=== PATIENT | female | born 2000 | race Caucasian/White ===

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

== ENCOUNTER 2022-02-28 11:45 | Emergency (ER) | payer OTHER, SELFPAY ==
--- NOTE | ~2022-02-28 | US_ITS ---
EXAMINATION: US OB limited DATE: 02/28/2022 15:00 INDICATION: Abdominal cramping during second trimester TECHNIQUE: Real-time ultrasound of the pelvis was performed. The interpreting radiologist was not pre sent for the study. COMPARISON: None. FINDINGS: There is a single living fetus in vertex presentation. The placenta is anterior. card iac activity and movement are noted. heart rate is 158 beats per minute (bpm). The amniot ic fluid index is 10.9 cm which is normal (normal range: 8.7 cm to 20 cm). The following biometric data were obtained: Biparietal diameter (BPD): 4.1 cm; head circumference (HC): 14.3 cm; abdominal circumference (AC): 11 .5 cm; femur length (FL): 2.7 cm. These measurements are concordant. Estimated weight is 206 g +/- 31 g, which correlates with the 6th percentile when 07/27/2022 is used as estimated date of delivery. As single measurements, these parameters are each equal to the following estimated gestational ages w ith ranges of +/- 2 standard deviations: BPD: 18 weeks 3 days +/- 1 weeks 5 days. HC: 17 weeks 4 days +/- 1 weeks 1 days. AC: 17 weeks 2 days +/- 1 weeks 5 days. FL: 18 weeks 1 days +/- 1 weeks 3 days. estimated gestational age based solely on measurements from this exam is 17 weeks 6 days +/- 1 weeks 2 days. IMPRESSION: 1. Single living fetus in vertex presentation. 2. Normal amniotic fluid index. 3. Estimated weight is 206 g +/- 31 g, which correlates with the 6th percentile when 07/27/2022 is used as estimated date of delivery. Reviewed, dictated and finalized at location F. IMPRESSION: 1. Single living fetus in vertex presentation. 2. Normal amniotic fluid index. 3. Estimated weight is 206 g +/- 31 g, which correlates with the 6th perc entile when 07/27/2022 is used as estimated date of delivery.
[2022-02-28 11:48] VITALS: BP 126/63; PULSE 79; RESP 16; TEMP 36.5; O2SAT 100
[2022-02-28 12:04] LABS: Basophils Percent Auto 0.2 % (0.2-1.2); Eosinophils Percent Auto 0.1 % (0-4.4); Hematocrit 38.6 % (37.0-47.0); Hemoglobin 12.9 g/dL (12.0-15.0); Immature Granulocyte Absolute 0.04 K/mm3 (0.00-0.031); Immature Granulocyte Percent A 0.4 % (0-0.5); Lymphocytes Absolute Auto 0.98 K/mm3 (0.9-3.2); Lymphocytes Percent Auto 10.8 % (18.3-44.2); Mean Corpuscular HGB Conc 33.4 g/dl (32-36); Mean Corpuscular Hemoglobin 28.7 pg (26-34); Mean Platelet Volume 11.3 fl (7.4-10.4); Monocytes Absolute Auto 0.4 K/mm3 (0.1-0.6); Monocytes Percent Auto 4.4 % (2.6-8.5); Neutrophils Absolute Auto 7.7 K/mm3 (1.3-6.7); Neutrophils Percent Auto 84.1 % (45.5-73.1); Platelet Count Result 199 k/mm3 (150-375); Red Blood Count 4.49 M/mm3 (4.2-5.4); Red Cell Distribution Width 14.3 % (11.5-14.5); White Blood Count 9.1 K/mm3 (4.5-10.0)
[2022-02-28 13:29] LABS: Add Urine Microscopic? YES; Amorphous Sediment Urine Few; Appearance Urine Cloudy (Clear); Bilirubin Urine Negative (Negative); Blood Urine Negative (Negative); Color Urine Yellow (Yellow); Glucose Urine UA Negative (Negative); Ketones Urine Negative (Negative); Leukocyte Esterase Ur Negative LEU/UL (Negative); Mucus Urine Rare /lpf; Nitrate Urine Negative (Negative); Protein Urine Negative (Negative); Specific Grav Ur 1.012 (1.001-1.035); Squamous Epithelial Cell Urine Moderate /hpf (Few); Urobilinogen Urine Negative mg/dL (<2.0); WBC Urine 0-3 /hpf
--- NOTE | 2022-02-28 14:27 | ED.GENADULT ---
HPI - General Adult General Chief complaint: Unspecified Stated complaint: 18 weeks , abd pain Time Seen by Provider: 02/28/22 14:18 History of Present Illness HPI narrative: Patient is a 21-year-old A1 female who is currently about 18 weeks here for evaluation of lower abdominal pain. Patient states the pain began 2 days ago, is crampy in nature and is intermittent. Unrelieved by Tylenol. Patient was seen at [place] [facility] last evening, was told she had UTI and placed on antibiotics but did not have an ultrasound. States the pain has been relatively constant and has been worsening. Denies vaginal bleeding, fevers, chills, diarrhea, constipation. No sudden gush of fluids or urge to push. Related Data Home Medications Medication Instructions Recorded Confirmed ondansetron HCl 4 mg tablet mg 02/28/22 Allergies Allergy/AdvReac Type Severity Reaction Status Date / Time Penicillins Allergy Anaphylactic Verified 02/28/22 14:18 Shock Review of Systems Review of Systems: Gen.: Denies fevers or chills Eyes: Denies eye pain or visual change ENT: Denies congestion Respiratory: Denies shortness of breath or cough CV: Denies chest pain or palpitations GI: Reports lower abdominal pain. Denies nausea, emesis or diarrhea denies burning, urgency, frequency or hematuria Musculoskeletal: Denies back pain or muscle pain Neuro: Denies numbness, tingling, weakness or focal weakness Skin: Denies rash Except as documented, all other systems reviewed and negative PMFSH Past Medical History Medical History No active medical problems Exam Narrative: APPEARANCE: Well appearing, no pain in distress, well-nourished. Head: Normocephalic and atraumatic. EYES: PERRLA/EOMI, conjunctivae clear NOSE: No nasal drainage EARS: External ear normal in appearance THROAT: Oropharynx is clear. Mucous membranes are moist. NECK: Supple. No adenopathy, no masses. RESPIRATORY: Airway patent, respirations nonlabored. Clear to auscultation bilaterally, no rales, rhonchi, wheezing. CARDIOVASCULAR: Regular rate and rhythm without murmurs, rubs, or gallops. : Small amount of white vaginal discharge noted in vaginal vault. Cervical os is closed. No cervical motion tenderness. ABDOMINAL: Normoactive bowel sounds. Soft, nontender, nondistended. No rebound tenderness or guarding. MUSCULOSKELETAL: Extremities are warm and well-perfused. Moves all extremities well. No edema. NEURO: Normal speech. No focal neurologic deficits. SKIN: Skin is warm and dry. No rashes. PSYCHIATRIC: Normal affect/mood. Course Vital Signs Vital signs: Vital Signs Temperature 97.7 F 02/28/22 11:48 Pulse Rate 79 02/28/22 11:48 Respiratory Rate 16 02/28/22 11:48 Blood Pressure 126/63 02/28/22 11:48 Pulse Oximetry 100 02/28/22 11:48 Temperature 97.7 F 02/28/22 11:48 Pulse Rate 80 02/28/22 15:56 Respiratory Rate 16 02/28/22 15:56 Blood Pressure 122/74 02/28/22 15:56 Pulse Oximetry 98 02/28/22 15:56 Medical Decision Making MDM Narrative Medical decision making narrative: 21-year-old female who is currently about 18 weeks here for evaluation of lower abdominal cramping. She is nontoxic-appearing, heart tones detected at bedside, ultrasound reveals live IUP. Patient is O+ no need for RhoGAM. Beta hCG quant is over 27,000 which is appropriate with her gestational age. She is currently being treated for UTI with Macrobid, UA here shows moderate squamous epithelial cells but no overt infection. She has no CVA tenderness to suggest Pyelo. Her cervical os is closed. Unclear etiology for abdominal pain but patient's normal ultrasound is certainly reassuring. Attempted to contact patient's VENEER GLUE SPREADER but there was no answer x2?no ability to leave message. Patient will contact her VENE[employer] GLUE SPREADER tomorrow for further evaluation and management.
[2022-02-28 15:56] VITALS: BP 122/74; PULSE 80; RESP 16; O2SAT 98
== END 2022-02-28 16:04 | disposition home or self-care (01) ==
PROVIDERS: Emergency Medicine; Emergency Provider Emergency Medicine; PCP Family Medicine
DX: O26.892 Other specified pregnancy related conditions, second trimester (principal); R10.30 Lower abdominal pain, unspecified; Z3A.18 18 weeks gestation of pregnancy
CPT/HCPCS: 36415; 76815; 81001; 84702; 85025; 85461; 99284

== ENCOUNTER 2023-11-18 13:26 | Emergency (ER) | payer OTHER, SELFPAY ==
--- NOTE | ~2023-11-18 | US_ITS ---
EXAMINATION: US OB <=14 wk fetus w TV DATE: 11/18/2023 18:55 INDICATION: Ectopic . TECHNIQUE: Real-time transabdominal and transvaginal pelvic ultrasound was performed. COMPARISON: None. FINDINGS: TRANSABDOMINAL ULTRASOUND: The uterus measures 7.7 x 4.3 x 5.1 cm. TRANSVAGINAL ULTRASOUND: There is an intrauterine gestational sac. A yolk sac is identified. The fet al crown rump length measures 5 mm, which correlates with an estimated gestational age of 6 weeks and 1 day(s) (+/-) 4 day(s). heart motion is identified measuring 123 beats per minute (bpm) by M- mode Doppler. The right ovary measures 2.3 x 1.8 x 2.8 cm. The left ovary measures 2.5 x 1.6 x 1.5 cm . There is no free fluid in the pelvis. IMPRESSION: 1. Single living intrauterine gestation with estimated date of delivery of 07/12/2024. Reviewed, dictated and finalized at location E. IMPRESSION: 1. Single living intrauterine gestation with estimated date of delivery of 07/12.
[2023-11-18 13:43] VITALS: BP 117/64; PULSE 89; RESP 16; TEMP 36.6; O2SAT 100
[2023-11-18 14:07] LABS: Appearance Urine Cloudy (Clear); Bacteria Urine 1+ /hpf; Bilirubin Urine Negative (Negative); Blood Urine Negative (Negative); Color Urine Yellow (Yellow); Glucose Urine UA Negative (Negative); Ketones Urine Negative (Negative); Leukocyte Esterase Ur Trace LEU/UL (Negative); Nitrate Urine Negative (Negative); Non Pathogenic Casts 0-2; Protein Urine Negative (Negative); RBC Urine 0-2 /hpf (0-2); Specific Grav Ur 1.022 (1.001-1.035); Squamous Epithelial Cell Urine Moderate /hpf (Few); pH Urine 7.5 (5.0-9.0)
[2023-11-18 14:08] LABS: Add Urine Microscopic? YES
--- NOTE | 2023-11-18 15:57 | ED.ABDPAIN ---
HPI - Abdominal Pain General Chief Complaint: Abdominal Pain Stated Complaint: 7 weeks preg, cramping Time Seen by Provider: 11/18/23 15:57 Source: patient Mode of arrival: ambulatory Limitations: no limitations History of Present Illness HPI narrative: 23 YEARS OLD WHITE FEMALE 5 PARA 2 2 DROVE HERSELF TO THE EMERGENCY ROOM COMPLAINING OF INTERMITTENT LOWER ABDOMINAL CRAMPS FOR THE LAST 3 DAYS, WORSE WITH TOO MUCH ACTIVITIES OR TOO MUCH SITTING. DENIES ANY VAGINAL BLEEDING OR DISCHARGE, LAST BETA HCG WAS 5000, DID NOT HAVE ANY PELVIC ULTRASOUND YET. SHE DENIES ANY FEVER, CHILLS, NAUSEA, VOMITING. Related Data Home Medications Medication Instructions Recorded Confirmed ondansetron HCl 4 mg tablet mg 02/28/22 Allergies Allergy/AdvReac Type Severity Reaction Status Date / Time Penicillins Allergy Anaphylactic Verified 02/28/22 14:18 Shock Review of Systems Review of Systems: All systems reviewed & are unremarkable except as noted in HPI and below PMFSH Past Medical History Medical History No active medical problems Social History Social History Living arrangements: with family Exam Narrative: GENERAL APPEARANCE: WELL-DEVELOPED, WELL-NOURISHED SKIN: NORMAL COLOR HEAD: NORMOCEPHALIC, NONTRAUMATIC EYES: CLEAR CONJUNCTIVA ENT: OROPHARYNX NORMAL, EARS NORMAL, NOSE NORMAL NECK: SUPPLE, NONTENDER CHEST AND RESPIRATORY: AIRWAY PATENT, NO RESPIRATORY DISTRESS, NO ACCESSORY MUSCLE USE HEART: REGULAR RATE/RHYTHM ABDOMEN: SOFT, NONTENDER, NO ORGANOMEGALY, QUIET BOWEL SOUNDS VASCULAR: NORMAL PERIPHERAL PULSES, NORMAL CAPILLARY REFILL. MUSCULOSKELETAL: NORMAL RANGE OF MOTION, NONTENDER BACK NEUROLOGIC: ALERT AND ORIENTED ?3, SSN/SSBN ASSISTANT NAVIGATOR IS NORMAL TESTED, NO GROSS MOTOR DEFICIT Course Vital Signs Vital signs: Vital Signs Temperature 36.6 C 11/18/23 13:43 Pulse Rate 89 11/18/23 13:43 Respiratory Rate 16 11/18/23 13:43 Blood Pressure 117/64 11/18/23 13:43 Pulse Oximetry 100 11/18/23 13:43 Oxygen Delivery Room Air 11/18/23 13:43 Temperature 36.6 C 11/18/23 13:43 Pulse Rate 70 11/18/23 16:53 Respiratory Rate 14 11/18/23 16:53 Blood Pressure 109/62 11/18/23 16:53 Pulse Oximetry 100 11/18/23 16:53 Oxygen Delivery Room Air 11/18/23 13:43 MDM - Abdominal Pain MDM Narrative Medical decision making narrative: DIFFERENTIAL DIAGNOSIS IS URINARY TRACT INFECTION, ECTOPIC , MISCARRIAGE. BLOOD WORKUP TODAY SHOWED UNREMARKABLE ABNORMALITIES. URINALYSIS SHOWS EVIDENCE OF [place]FE[place], [place] [address] URINE TRACT INFECTION COULD BE THE UNDERLYING CAUSE OF PATIENT CRAMPS, MACROBID 100 B.I.D. FOR 5 DAYS WOULD BE APPROPRIATE AT THIS TIME. PATIENT TO FOLLOW-UP WITH OBGYN WITHIN 5 DAYS. Differential Diagnosis Differential diagnosis: Likely other ( ABOVE) Lab Data Attestation: I reviewed the patient's lab results. 11/18/23 16:48 11/18/23 16:48 Labs: Lab Results 11/18/23 11/18/23 Range/Units 13:56 16:48 WBC 9.7 (4.5-10.0) K/mm3 RBC 4.91 (4.2-5.4) M/mm3 Hgb 13.6 (12.0-15.0) g/dL Hct 41.0 (37.0-47.0) % MCV 83.5 (80-100) fl MCH 27.7 (26-34) pg MCHC 33.2 (32-36) g/dl RDW 13.2 (11.5-14.5) % Plt Count 228 (150-375) k/mm3 MPV 12.1 H (7.4-10.4) fl Immature Gran % (Auto) 0.3 (0-0.5) % Neut % (Auto) 73.7 H (45.5-73.1) % Lymph % (Auto) 18.5 (18.3-44.2) % Mccracken % (Auto) 6.4 (2.6-8.5) % Eos % (Auto) 0.8 (0-4.4) % Baso % (Auto) 0.3 (0.2-1.2) % Lymph # (Auto) 1.80 (0.9-3.2
[2023-11-18] MEDS: SODIUM CHLORIDE 0.9% IV 1,000 ML 999 ML IV CONT (16:51)
[2023-11-18 16:53] VITALS: BP 109/62; PULSE 70; RESP 14; O2SAT 100
[2023-11-18 16:57] LABS: Basophils Percent Auto 0.3 % (0.2-1.2); Eosinophils Absolute Auto 0.1 K/mm3 (0-0.3); Eosinophils Percent Auto 0.8 % (0-4.4); Hemoglobin 13.6 g/dL (12.0-15.0); Immature Granulocyte Absolute 0.03 K/mm3 (0.00-0.031); Immature Granulocyte Percent A 0.3 % (0-0.5); Lymphocytes Percent Auto 18.5 % (18.3-44.2); Mean Corpuscular HGB Conc 33.2 g/dl (32-36); Mean Corpuscular Hemoglobin 27.7 pg (26-34); Mean Corpuscular Volume 83.5 fl (80-100); Mean Platelet Volume 12.1 fl (7.4-10.4); Monocytes Absolute Auto 0.6 K/mm3 (0.1-0.6); Monocytes Percent Auto 6.4 % (2.6-8.5); Neutrophils Absolute Auto 7.2 K/mm3 (1.3-6.7); Neutrophils Percent Auto 73.7 % (45.5-73.1); Platelet Count Result 228 k/mm3 (150-375); Red Blood Count 4.91 M/mm3 (4.2-5.4); Red Cell Distribution Width 13.2 % (11.5-14.5); White Blood Count 9.7 K/mm3 (4.5-10.0)
[2023-11-18 17:15] LABS: Alanine Aminotransferase 13 U/L (6-35); Albumin Level 4.9 g/dL (3.5-5.1); Alkaline Phosphatase 63 U/L (38-126); Anion Gap 11 mmol/L (4-12); Aspartate Amino Transferase 19 U/L (14-36); Bilirubin,Total 0.5 mg/dL (0.2-1.3); Blood Urea Nitrogen 6 mg/dL (7-17); Calcium 9.2 mg/dL (8.4-10.2); Carbon Dioxide 24 mmol/L (22-30); Chloride 104 mmol/L (98-107); Estimated CRCL calculation 100 ml/min; Estimated Glomerular Filt Rate > 60; Glucose 86 mg/dL (65-110); Potassium 3.8 mmol/L (3.4-5.0); Sodium 139 mmol/L (137-145)
== END 2023-11-18 19:21 | disposition home or self-care (01) ==
PROVIDERS: Emergency Provider Emergency Medicine
DX: O23.41 Unspecified infection of urinary tract in pregnancy, first trimester (principal); N39.0 Urinary tract infection, site not specified; Z3A.01 Less than 8 weeks gestation of pregnancy
CPT/HCPCS: 36415; 76801; 76817; 80053; 81001; 81025; 84702; 85025; 87086; 96360; 96361; 99284; J7030

== ENCOUNTER 2024-02-16 16:44 | Observation (INO) | payer OTHER, SELFPAY ==
[2024-02-16] VITALS (7 sets, daily range): BP systolic 100–119; BP diastolic 44–61; PULSE 71–79; TEMP 38.1–38.9; O2SAT 95–100
--- NOTE | ~2024-02-16 | XR_ITS ---
XR chest 1V portable Ordering provider: Mellisa Naranjo CNM History: 23 years Female with . febrile, infection of unknown etiology . Comparison: None. FINDINGS: MEDIASTINUM: The cardiac silhouette is not enlarged. LUNGS: No infiltrates, effusions or pneumothorax. OTHER: No free air under the diaphragm. IMPRESSION: No acute cardiopulmonary pathology. Reviewed, dictated and finalized at location A.
--- NOTE | 2024-02-16 16:13 | PC.NURSE ---
Yanely Naranjo. GISELA on unit when pt arrived. Listened to pt complaints. Orders received.
--- NOTE | 2024-02-16 16:13 | OBADM ---
This patient, Ryan Gonzales, admitted to the OB room OB Post 113 for observation. Patient/family oriented to hospital policies and general routines including ID bracelet, bed and alarms, visiting hours, pain management, procedures, bathroom and other care routines, personal items, smoking policy, room service/diet, and visiting hours. Patient/Family are encouraged to report perceived risks to care and to ask questions if they do not understand what they are told or what they should do.
[2024-02-16 17:08] LABS: Basophils Percent Auto 0.3 % (0.2-1.2); Eosinophils Absolute Auto 0.1 K/mm3 (0-0.3); Hematocrit 34.8 % (37.0-47.0); Hemoglobin 11.5 g/dL (12.0-15.0); Immature Granulocyte Absolute 0.04 K/mm3 (0.00-0.031); Immature Granulocyte Percent A 0.7 % (0-0.5); Lymphocytes Absolute Auto 1.68 K/mm3 (0.9-3.2); Lymphocytes Percent Auto 27.3 % (18.3-44.2); Mean Corpuscular Hemoglobin 27.9 pg (26-34); Mean Corpuscular Volume 84.5 fl (80-100); Mean Platelet Volume 11.1 fl (7.4-10.4); Monocytes Absolute Auto 0.8 K/mm3 (0.1-0.6); Monocytes Percent Auto 12.2 % (2.6-8.5); Neutrophils Absolute Auto 3.5 K/mm3 (1.3-6.7); Neutrophils Percent Auto 57.5 % (45.5-73.1); Platelet Count Result 171 k/mm3 (150-375); Red Blood Count 4.12 M/mm3 (4.2-5.4); Red Cell Distribution Width 14.5 % (11.5-14.5); White Blood Count 6.2 K/mm3 (4.5-10.0)
[2024-02-16 17:24] LABS: Alanine Aminotransferase 12 U/L (6-35); Albumin Level 3.7 g/dL (3.5-5.1); Alkaline Phosphatase 49 U/L (38-126); Anion Gap 7 mmol/L (4-12); Aspartate Amino Transferase 16 U/L (14-36); Bilirubin,Total 0.6 mg/dL (0.2-1.3); Blood Urea Nitrogen 4 mg/dL (7-17); Calcium 8.6 mg/dL (8.4-10.2); Carbon Dioxide 25 mmol/L (22-30); Chloride 100 mmol/L (98-107); Estimated Glomerular Filt Rate > 60; Glucose 82 mg/dL (65-110); Potassium 3.5 mmol/L (3.4-5.0); Sodium 132 mmol/L (137-145)
[2024-02-16] MEDS: SUMAtriptan SUCCINATE 25 MG TABLET PO (17:43)
--- NOTE | 2024-02-16 17:45 | PC.NURSE ---
Yanely Naranjo CNM at bedside to assess pt. Informed of temp of 102.0. Orders received.
--- NOTE | 2024-02-16 17:52 | ECG_ITS ---
Test Date: 2024-02-16 19:14:04 Measurements Intervals [place] Rate: 66 P: 41 [place]: 118 QRS: 67 QRSD: 94 T: 42 QT: 389 QTc: 409 Interpretive Statements SINUS RHYTHM WITH MARKED SINUS ARRHYTHMIA WITH SHORT [place] INTERVAL NONSPECIFIC T-WAVE ABNORMALITY BORDERLINE ECG No previous ECG available for comparison Electronically Signed On 02-17-2024 12:29:48 CDT by Devon Hansen M.D.
--- NOTE | 2024-02-16 17:54 | PM.IMHP ---
H&P: HPI History of Present Illness Date/Time: 02/16/24 17:54 Chief Complaint: at 19 weeks gestation presents to LD with complaints of nausea, vomiting, and migraine. pt had headache symptoms at her office visit on 01/31, treated for UTI and given prophylactic macrobid due to multiple UTI's in . Pt went to ED with nausea vomiting, headache and back pain that was increasing and radiating to her bilateral sides of her neck. Pt was admitted and given IV antibiotics x 2 days for kidney infection. On 02/12 pt went back to ED with increasing pain in her head, eyes and can hear my heartbeat in my ears. Pt was then sent home after IV fluids. Labs unremarkable today, awaiting urine. Pt says she has been afebrile, but currently has a fever of 102 and does complain of chills and is visibly shivering. is complicated by a history of intrauterine growth restriction. Surgical history includes wisdom teeth removal and removal of adenoids and tonsils. [facility] Past Medical History Medical History No active medical problems Social History Social History Living arrangements: with family Meds Home Medications and Allergies Home Medications Medication Instructions Recorded Confirmed Type ondansetron HCl 4 mg tablet mg 02/28/22 History nitrofurantoin 100 mg PO Q12H 7 days #14 caps 11/18/23 Rx monohydrate/macrocrystals 100 mg capsule (Macrobid) Allergies Allergy/AdvReac Type Severity Reaction Status Date / Time Penicillins Allergy Anaphylactic Verified 02/28/22 14:18 Shock Vital Signs Vital Signs - 24 hr 02/16/24 17:47 Pulse Rate 79 Blood Pressure 119/61 Exam Const: General: cooperative and ill appearing Neck: Neck: normal visual inspection Resp: Effort & Inspection: normal respiratory effort Cardio: Rate: regular rate GI: Other: soft Skin: General skin exam: normal color Neuro: General: patient oriented x3 Extrem: General: normal to inspection Psych: Appearance: grossly normal H&P: Results Labs Labs: Short CBC 02/16/24 Range/Units 16:46 WBC 6.2 (4.5-10.0) K/mm3 Hgb 11.5 L (12.0-15.0) g/dL Hct 34.8 L (37.0-47.0) % Plt Count 171 (150-375) k/mm3 BMP 02/16/24 16:46 Sodium 132 L Potassium 3.5 Chloride 100 Carbon Dioxide 25 BUN 4 L Creatinine 0.40 L Glucose 82 Calcium 8.6 Liver Function 02/16/24 Range/Units 16:46 Total Bilirubin 0.6 (0.2-1.3) mg/dL AST 16 (14-36) U/L ALT 12 (6-35) U/L Alkaline Phosphatase 49 (38-126) U/L Albumin 3.7 (3.5-5.1) g/dL Assessment and Plan Assessment and plan (1) Headache: Code(s): R51.9 - Headache, unspecified Status: Acute (2) Neck pain: Code(s): M54.2 - Cervicalgia Status: Acute (3) Fever of unknown origin: Code(s): R50.9 - Fever, unspecified Status: Acute Plan infection of unknown origin plan respiratory swab await urine discussed with dr. lira and will order chest xray and ekg when results are in will consult hospitalist
[2024-02-16] MEDS: ACETAMINOPHEN 500 MG TABLET 1000 MG PO (18:39)
[2024-02-16 19:04] LABS: Add Urine Microscopic? YES; Appearance Urine Cloudy (Clear); Bilirubin Urine Negative (Negative); Blood Urine Negative (Negative); Color Urine Yellow (Yellow); Glucose Urine UA Negative (Negative); Ketones Urine 3+ mg/dL (Negative); Leukocyte Esterase Ur Trace LEU/UL (Negative); Nitrate Urine Negative (Negative); Protein Urine Trace mg/dL (Negative)
[2024-02-16 19:14] LABS: Bacteria Urine None Seen /hpf; Budding Yeast Urine Present /hpf; Need Manual Microscopic Reviewed; Non Pathogenic Casts 0-2; RBC Urine 0-2 /hpf (0-2); Squamous Epithelial Cell Urine Moderate /hpf (Few); WBC Urine 0-5 /hpf (0-3)
[2024-02-16 19:29] LABS: Influenza A QL RT-PCR Negative (Negative); Influenza B QL RT-PCR Negative (Negative); RSV RNA, RT-PCR Negative (Negative); SARS-CoV-2 RNA PCR Negative (Negative)
--- NOTE | 2024-02-16 19:47 | PM.IMCN ---
Assessment and Plan Assessment and plan (1) Fever of unknown origin: Code(s): R50.9 - Fever, unspecified Status: Acute Assessment and Plan: Influenza A, B, RSV and COVID negative No signs of soft tissue infection No signs of respiratory infection Strep culture pending Extended respiratory panel ordered pending Blood cultures pending (2) Headache: Code(s): R51.9 - Headache, unspecified Status: Acute Assessment and Plan: Tylenol as needed (3) Neck pain: Code(s): M54.2 - Cervicalgia Status: Acute Assessment and Plan: Tylenol Okay for hot packs (4) : Code(s): Z34.90 - Encounter for supervision of normal , unspecified, unspecified trimester Status: Inactive Assessment and Plan: OB as primary service FHR 175 Plan Ryan Gonzales is a 23 year old female at 19 weeks gestation presents to with complaints of nausea, vomiting, and migraine and fever of unknown origin. No signs of soft tissue infection, no signs of respiratory infection, urine has trace leukocyte esterase which does not explain high fever or neck or back pain. . HPI Date of Consult Consult date: 02/16/24 Requesting Physician: Marv Neal MD Primary Care Provider: UNKNOWN,DOCTOR Consult Narrative Reason for consult: Fever and chills Narrative: Ryan Gonzales is a 23 year old female at 19 weeks gestation presents to with complaints of nausea, vomiting, and migraine and temperature of 102.0?. 01/31 she was treated for UTI and given prophylactic macrobid due to multiple UTI's in . Pt went to ED with nausea vomiting, headache and back pain that was increasing and radiating to her bilateral sides of her neck. Pt was admitted and given IV antibiotics x 2 days for kidney infection. 02/12 pt went back to ED with increasing pain in her head, eyes and can hear my heartbeat in my ears. Pt was then sent home after IV fluids. 02/15 Patient came back to the ED due to increased weakness, nausea, vomiting, and a fever of 102.0. Patient states she was too weak to walk and had to have her dad carry her to the car. She also complains of neck pain and pain down her spinal margarita. She states that she has not had neck pain before with migraines. She denies being round sick individuals, foreign travel, IV drug use or skin infection. heart rate is elevated at 175. is complicated by a history of intrauterine growth restriction. UA shows leukocyte esterase trace and yeast. Review of Systems Constitutional: Constitutional: Reports chills, Reports fatigue, Reports lethargy and Reports weakness Eyes: Eyes: Reports no additional eye complaints ENT: Reports system reviewed and no additional complaints, except as documented Cardiovascular: Cardiovascular: Reports no additional cardiovascular complaints Respiratory: Respiratory: Reports no additional respiratory complaints Gastrointestinal: Gastrointestinal: Reports nausea and Reports vomiting Genitourinary: Genitourinary: Reports nocturia and Reports urinary urgency Musculoskeletal: Musculoskeletal: Reports neck pain Integumentary/Breasts: Skin/Breast: Reports as per [facility] Past Medical History Medical History No active medical problems Social History Social History Living arrangements: with family Meds Home Medications and Allergies Home Medications Medication Instructions Recorded Confirmed Type ondansetron HCl 4 mg tablet mg 02/28/22 History nitrofurantoin 100 mg PO Q12H 7 days #14 caps 11/18/23 Rx monohydrate/macrocrystals 100 mg capsule (Macrobid) Allergies Allergy/AdvReac Type Severity Reaction Status Date / Time Penicillins Allergy Anaphylactic Verified 02/28/22 14:18 Shock Vital Signs V
[2024-02-16] MEDS: HYDROcodone/acetaminophen (*CRX) 5-325 MG TABLET 1 TAB PO (20:01)
--- NOTE | 2024-02-16 20:43 | PC.NURSE ---
Addendum entered by Whit Barnett RN 02/16/24 21:11: 2111- CNM called and made aware of fever despite tylenol. No new orders received. Original Note: 1920- RN called CNM. CNM notified of latest lab results, unofficial EKG results. Orders received 1923- EKG taken to ER by RN and read by Dewayne Farr MD. No further interventions needed. 1946- Tsering Serrano APRN, called and notified of consult. 1951- RN called CNM and notified her that RN had been in contact with APPLICATION ASSISTANT, CNM notified that Pts headache persists and of negative COVID/RSV/ FLU swab. Orders received for [place]-5 ONCE PO
--- NOTE | 2024-02-16 21:46 | PC.NURSE ---
2127- CALCULATION REVIEWER at bedside discussing POC with pt and completing assessment. 2143- RN called CNM and given update that CALCULATION REVIEWER had been in to see pt. Orders received for D5LR @125 ML/hr continuous.
[2024-02-16] MEDS: DEXTROSE 5%/LACTATED RINGERS 1,000 ML 125 ML IV CONT (22:12)
[2024-02-17] VITALS: RESP 18; TEMP 36.9
[2024-02-17 00:10] VITALS: PULSE 76; O2SAT 100
[2024-02-17 00:11] VITALS: BP 100/64; PULSE 70
--- NOTE | 2024-02-17 00:20 | PC.NURSE ---
Addendum entered by Whit Barnett RN 02/17/24 01:56: 0145- CNM in unit and secured transfer to [facility] Addendum entered by Whit Barnett RN 02/17/24 00:23: 2200- FHT doppled in 150's Original Note: 2304- Hospitalist at bedside. recommends pt transferred to higher level of care. 0015- CNM at bedside discussing POC with pt. Pt agrees to transfer to higher level of care
[2024-02-17] MEDS: ONDANSETRON INJ 4 MG/2 ML VIAL IV PUSH (02:55)
--- NOTE | 2024-02-20 11:26 | P.TS_ITS ---
Transfer Discharge Sum: Prov Provider Date of admission: 02/16/24 16:44 Primary care physician: UNKNOWN,DOCTOR Admitting clinician: Marv Neal MD Consults: 02/16/24 Consult to Physician Routine Comment: Consulting Provider: Sushma Flower Reason for consultation: back pain, N/V, febrile, abnormal EKG Has provider been notified: Yes Attending physician on discharge: Marv Neal Discharging clinician: Mellisa Naranjo Anticipated date of transfer: 02/16/24 Receiving physician/facility: [facility] DS: Admitting Diagnosis Discharge Date 02/17/24 Admitting Diagnosis headache DS: Discharge Diagnosis Discharge Diagnosis (1) Headache: Code(s): R51.9 - Headache, unspecified Status: Acute Assessment and Plan: plan to transfer to tertiary care [facility], accepted by [facility], pt stable for transfer (2) Neck pain: Code(s): M54.2 - Cervicalgia Status: Acute (3) Fever of unknown origin: Code(s): R50.9 - Fever, unspecified Status: Acute Transfer Discharge Sum: Med Medications Active and Home Medications: Home Medications ondansetron HCl 4 mg tablet mg 02/28/22 [History] nitrofurantoin monohydrate/macrocrystals 100 mg capsule (Macrobid) 100 mg PO Q12H 7 days #14 caps 11/18/23 [Rx] Transfer Discharge Sum: Hosp Hospital Course Hospital course: Ryan Gonzales is a 23 year old female Time Spent with Patient Time attestation: Total time spent providing and/or coordinating transfer services:
== END 2024-02-17 04:05 | disposition short-term general hospital (02) ==
PROVIDERS: Advanced Practice Midwife; Admitting Provider Obstetrics & Gynecology; Visit Provider Obstetrics & Gynecology
DX: O26.892 Other specified pregnancy related conditions, second trimester (principal); R51.9 Headache, unspecified; M54.2 Cervicalgia; R50.9 Fever, unspecified; R11.2 Nausea with vomiting, unspecified; Z3A.19 19 weeks gestation of pregnancy; Z20.822 Contact with and (suspected) exposure to COVID-19; Z88.0 Allergy status to penicillin; Z79.899 Other long term (current) drug therapy
CPT/HCPCS: 36415; 71045; 80053; 81001; 85025; 87086; 87637; 93005; 96374; A9270; G0378; G0379; J2405; J7121

== ENCOUNTER 2025-05-07 10:48 | Outpatient (CLI) | payer OTHER, SELFPAY ==
--- OUTSIDE RECORDS SUMMARY | 2025-05-07 11:42 | XMS_ITS | Clinical Summary ---
Author Organization [facility] Address [address] [place] [address] Care Team Providers Care Lay Health Advocate Name Role Phone Derrick Vera MD Primary Care Provider Allergies Active Allergy Reactions Criticality Noted Date Comments Penicillins Anaphylaxis,Hives High 06/22/2020 Anaphylaxis in electronics design engineer Medications sertraline (ZOLOFT) 100 mg tablet Take 100 mg by mouth daily 09/09/2021 Active acetaminophen 500 mg capsuleIndicati ons:Pain Take 2 capsules (1,000 mg total) by mouth every 6 (six) hours 30 tablet 2 02/22/2024 Active ibuprofen (ADVIL,MOTRIN) 600 mg tabletIndicatio ns:Cramps Take 1 tablet (600 mg total) by mouth every 6 (six) hours as needed for pain 30 tablet 3 02/22/2024 Active Active Problems Problem Noted Date Diagnosed Date Headache 02/17/2024 Hyperthyroidism 10/19/2021 Assessment & Plan (10/19/2021 1:57 PM CDT): Patient reports diagnosis of hyperthyroidism 1-2 month ago Investigated with thyroid scan No records. She delivered a healthy baby in February/2021 Patient is clinically euthyroid This may represent post- thyroiditis. Plan: Obtain records from PCP Check thyroid levels today Follow up and further recommendation will be decided after we obtain above test results. Social History Tobacco Use Types Packs/Day Years Used Date Smoking Tobacco: Never Smokeless Tobacco: Never [place] Depression Scale Answer Date Recorded [place] Depression Scale Total 19 03/27/2024 The thought of harming myself has occurred to me . Never 03/27/2024 Personal Safety Answer Date Recorded Have you ever been in or are you currently in a harmful physical or emotional relationship or is someone making you feel afraid or unsafe? Denies 02/17/2024 Comments No Sex and Gender Information Value Date Recorded Sex Assigned at Not on file Legal Sex Female 10:07 AM CDT Gender Identity Not on file Sexual Orientation Not on file Obstetrics History Para Term AB IAB SAB Ectopic Multiple Livin g Live Births 6 2 2 3 1 2 Date Outcome GA Total Labor Labor/2nd/3rd Weight Sex Type Anes PTL Anna A1 A5 Name Clin AB AB Term Term 2023 SAB 19w 5d SAB Demise Last Filed Vital Signs Vital Sign Reading Time Taken Comments Blood Pressure 128/63 02/22/2024 3:40 PM CDT Pulse 78 02/22/2024 3:40 PM CDT Temperature 36.7 C (98 F) 02/22/2024 3:40 PM CDT Respiratory Rate 16 02/22/2024 3:40 PM CDT Oxygen Saturation 95% 02/22/2024 3:40 PM CDT Inhaled Oxygen Concentration - - Weight 49.4 kg (109 lb) 02/17/2024 3:49 PM CDT Height 157.5 cm (5' 2) 02/17/2024 3:49 PM CDT Body Mass Index 19.94 02/17/2024 3:49 PM CDT Plan of Treatment Health Maintenance Due Date Last Done Comments Cervical Cancer Screening 2002 Hepatitis C Screening 2002 Meningococcal B Vaccine (1 o f 2 - Standard) 2018 Regular Well Visit/Exam 18-64 2020 Influenza Vaccine (#1) 2025 Depression Screening 03/27/2025 03/27/2024 DTaP/Tdap/Td Vaccine (9 - Td or Tdap) 01/02/2031 01/02/2021, 01/10/2014, 01/10/2014, Additional history exists Hepatitis B Screening Completed 02/12/2004 , 03/05/2003, 2002, Additional history exists Pneumococcal vaccine <65 Completed 004, 03/05/2003, 2002 Varicella Vaccines Completed 12/14/2007, 04/28/2004 HPV Vaccines Completed 01/09/2015, 01/10/2014 Insurance [facility] Advance Directives For more information, please contact: [phone] * Full Code (Latest Code Status on File) Date Activated Date Inactivated Comments 02/22/2024 2:28 AM 02/22/2024 9:41 PM * Full Code Date Activated Date Inactivated Comments 02/17/2024 5:07 AM 02/22/2024 2:28 AM Care Teams Lay Health Advocate Relationship Specialty Start Date End Date Derrick Vera MD PCP - General Family Medicine 10/14/21
--- OUTSIDE RECORDS SUMMARY | 2025-05-07 11:42 | XMS_ITS | Encounter Summary ---
Author Organization [facility] Address [facility] [place] [address] Care Team Providers Care Livestock Judging Coach Name Role Phone Bandar Forde MD Primary Care Provider Leandra Knott MD Primary Care Provider + Pankaj Ac NP Primary Care Provi craig Encounter Details Date Type Department Care Team ([facility] st Contact Info) Description 10/14/2018 Abstract SFL CONVERSION [address] [place] [address] , Generic Conversion, Social History Tobacco Use Types Packs/Day Years Used Date Smoking Tobacco: Never Assessed Comments Unknown Sex and Gender Information Value Date Recorded Sex Assigned at Female 05/22/2024 11:21 PM DIRECTOR OF SCIENCE Legal Sex Female 5:49 PM DIRECTOR OF SCIENCE Gender Identity Not on file Sexual Orientation Not on file documented as of this encounter Plan of Treatment Not on file documented as of this encounter Visit Diagnoses Not on filedocumented in this encounter Additional Health Concerns Infection Onset Date Last Indicated Resolved Time COVID-19 Rule Out 02/13/2021 02/13/2021 02/13/2021 7:19 PM CDT COVID-19 Rule Out 02/02/2024 02/02/2024 02/02/2024 10:14 PM CDT COVID-19 Rule Out 02/13/2024 02/13/2024 02/13/2024 6:55 PM CDT documented as of this encounter Care Teams Livestock Judging Coach Relationship Specialty Start Date End Date Bandar Forde MD [address] [place] [address] PCP - General FAMILY PRACTICE 02/18/20 02/26/22 Leandra Knott MD [address] [place] [address] PCP - General FAMILY PRACTICE 12/25/23 07/19/24 Pankaj Ac NP [address] [place] [id number] PCP - General Nurse Practitioner Family 07/20/24 documented as of this encounter
--- OUTSIDE RECORDS SUMMARY | 2025-05-07 11:42 | XMS_ITS | Clinical Summary ---
Author Organization [facility] Address [address] [place] [address] Care Team Providers Care Road Grader Name Role Phone Pankaj Ac NP Primary Care Provi craig Allergies Active Allergy Reactions Criticality Noted Date Comments Penicillins Swelling 06/22/2020 Medications aspirin EC 81 MG tablet Take 1 tablet (81 mg total) by mouth daily. Active Rukjcxln-Iab-Zn- FA (PRE- OR) Active ferrous sulfate EC 325 (65 Fe) MG tablet Take 1 tablet by mouth daily. Active Active Problems Problem Noted Date Diagnosed Date Pruritus of 02/20/2025 affected by growth restriction 0 07/09/2022 Encounter for elective induction of labor 2020 Resolved Problems Problem Noted Date Diagnosed Date Resolved Date Encounter for supervision of other normal , second trimester 02/03/2024 02/04/2024 Flank pain, acute 02/03/2024 02/04/2024 Leukopenia, unspecified type 02/03/2024 02/04/2024 Pyelonephritis 02/02/2024 02/04/2024 Encounters Date Type Department Care Team Description 02/20/2025 6:31 PM CDT Anesthesia Event [facility] [address] [place] [address] Sarah Gamble CRNA 02/20/2025 4:07 PM CDT - 02/22/2025 2:00 PM CDT Hospital Encounter [facility] [address] [place] [address] Ad Guevara MD Discharge Disposition: Home or Self Care (Routine Discharge) 02/06/2025 3:54 PM CDT - 02/06/2025 11:59 PM CDT [facility] [address] [place] [address] Delfino Babcock MD Discharge Disposition: Home or Self Care (Routine Discharge) 02/06/[address] [facility] [address] [place] [address] Delfino Babcock MD from Last 3 Months Immunizations Immunization Administration Dates Next Due MMR (MMRII) 02/18/2021 Social History Tobacco Use Types Packs/Day Years Used Date Smoking Tobacco: Never Smokeless Tobacco: Never Alcohol Use Standard Drinks/Week Comments Never 0 (1 standard drink = 0.6 oz pur e alcohol) [facility] Utilities Answer Date Recorded In the past 12 months has [facility], gas, oil, or water [employer] threatened to shut off services in your home? No 02/02/2024 Humiliation, Afraid, Rape, and Kick questionnair e Answer Date Recorded Within the last year, have y ou been afraid of your partner or ex-partner? No 02/02/2024 Within the last year, have y ou been humiliated or emotionally abused in other ways by your partner or ex-partner? No Within the last year, have y ou been kicked, hit, slapped, or otherwise physically hurt by your partner or ex-partner? No 02/02/2024 Within the last year, have y ou been raped or forced to have any kind of sexual activity by your partner or ex-partner? No 02/02/2024 Social Connection and Isolation Panel Answer Date Recorded In a typical week, how many times do you talk on the phone with family, friends, or neighbors? Patient declined 07/11/2022 How often do you get togethe r with friends or relatives? Patient declined 07/11/2022 How often do you attend uatsdin or congregational serv ices? Patient declined 07/11/2022 Do you belong to any clubs o r organizations such as uatsdin groups, unions, fraternal or athletic groups, or school groups? Patient declined 07/11/2022 How often do you attend meet ings of the clubs or organizations you belong to? Patient declined 07/11/2022 Are you , , di vorced, , never , or living with a partner? Patient declined 07/11/2022 AUDIT-C Answer Date Recorded Q1: How often do you have a drink containing alc ohol? Patient declined 07/11/2022 Q2: How many drinks containi ng alcohol do you have on a typical day when you are drinking? Patient declined 07/11/2022 Q3: How often do you have si x or more drinks on one occasion? Patient declined 07/11/2022 Overall Financial Resource Strain (CARDIA) Answe r Date Recorded How hard is it for you to pa y for the very basics like food, housing, medical care, and heating? Not very hard 02/02/2024 [facility] - Occupational Stress Questionnaire Answer Date Recorded Do you feel stress - tense, restless, nervous, or anxious, or unable to sleep at night because your mind is troubled all the time - these days? Patient declined 07/11/2022 Exercise Vital Sign Answer Date Recorde d On average, how many days pe r week do you engage in moderate to strenuous exercise (like a brisk walk)? Patient declined On average, how many minutes do you engage in exercise at this level? Patient declined 07/11/2022 Hunger Vital Sign Answer Date Recorded Within the past 12 months, y ou worried that your food would run out before you got the money to buy more. Never true 02/02/20 24 Within the past 12 months, t he food you bought just didn't last and you didn't have money to get more. Never true 02/02/2024 [facility]APARE - Transportation Answer Date Re corded In the past 12 months, has l ack of transportation kept you from medical appointments or from getting medications? No 01/08 In the past 12 months, has l ack of transportation kept you from meetings, work, or from getting things needed for daily living? No 02/02/2024 Housing Stability Vital Sign Answer Jitendra e Recorded In the last 12 months, was t here a time when you were not able to pay the mortgage or rent on time? Patient refused 07/12/19 23 In the last 12 months, how many places have you lived? 1 07/11/2022 In the last 12 months, was t here a time when you did not have a steady place to sleep or slept in a penitentiary (including now)? Patient refused 07/11/2022 Housing Stability Vital Sign Answer Jitendra e Recorded In the last 12 months, was t here a time when you were not able to pay the mortgage or rent on time? No 02/02/2024 In the past 12 months, how m any times have you moved where you were living? 1 02/02/2024 At any time in the past 12 m [facility], were you homeless or living in a penitentiary (including now)? No 02/02/2024 [place] Depression Scale Answer Date Recorded [place] Depression Scale Total 8 02/22/2025 The thought of harming myself has occurred to me . Never 02/22/2025 Depression Answer Date Recor ded Last EPDS Total Score 4 07/11/2022 Last EPDS Self Harm Result Unrecognized value Comments No Sex and Gender Information Value Date Recorded Sex Assigned at Female 05/22/2024 11:21 PM COMPLIANCE ASSOCIATE Legal Sex Female 5:49 PM COMPLIANCE ASSOCIATE Gender Identity Not on file Sexual Orientation Not on file Last Filed Vital Signs Vital Sign Reading Time Taken Comments Blood Pressure 125/81 02/22/2025 8:04 AM CDT Pulse 68 02/22/2025 8:04 AM CDT Temperature 35.4 C (95.7 F) 02/22/2025 8:04 AM CDT Respiratory Rate 16 02/22/2025 8:14 AM CDT Oxygen Saturation 98% 02/22/2025 8:14 AM CDT Inhaled Oxygen Concentration - - Weight 61.3 kg (135 lb 3.2 oz) 02/20/2025 4:11 P M CDT Height 157.5 cm (5' 2) 02/20/2025 4:11 PM CDT Body Mass Index 24.73 02/20/2025 4:11 PM CDT Plan of Treatment Health Maintenance Due Date Last Done Comments Annual Physical 2005 DTaP, Tdap and Td Vaccines (6 - Tdap) 2013 12/14/2007, 02/12/2004, 06/17/2003, Additional history exists Meningococcal B Vaccine (1 of 2 - Standard) 2018 Hepatitis B Vaccines (1 of 3 - 19+ 3-dose series) 2021 COVID-19 Vaccine (1 - season) 2025 Influenza Adult (#1) 2025 Chlamydia Screening Females ages 16-24 01/31/2026 01/31/2025, 07/20/2024, 12/06/2023 Cervical Cancer Screening Pap Smear (Age 21 to 29) Every 3 Years 12/05/2026 12/06/2023 Cervical Cancer Screening 12/05/2026 Meningococcal Vaccine Aged Out 01/10/2014 No zhane nabor eligible based on patient's age to complete this topic HPV Vaccines Completed 01/09/2015, 01/10/2014 Hepatitis C Completed 07/20/2024, 12/16/2023 Hepatitis A Vaccines Aged Out No long er eligible based on patient's age to complete this topic Pneumococcal Vaccine: Pediatrics (0 to 5 Years) and At-Risk Patients (6 to 49 Years) Aged Out No longer eligible based on patient's age to complete this topic RSV Immunizations Under 20 Months Aged Out No longer eligible based on patient's age to complete this topic Procedures Procedure Name Priority Date/Time Associated Diagnosis Comments LABOR EPIDURAL Routine 02/20/2025 10:55 PM CDT TYPE & SCREEN STAT 02/20/2025 4:45 PM CDT Pruritus of (HHS/HCC) HC CHROMO SPECTROMETRY -90 STAT 02/20/2025 4:45 PM CDT Pruritus of (HHS/HCC) HC COMPREHENSIVE METABOL PANEL STAT 02/20/2025 4:45 PM CDT Pruritus of (HHS/HCC) SYPHILIS AB (DIAGNOSTIC) WITH CASCADING REFLEX STAT 02/20/2025 4:45 PM CDT Pruritus of (HHS/HCC) HC CBC AUTO W/AUTO DIFF STAT 02/20/2025 4:45 PM CDT Pruritus of ([facility]/HCC) HC CULTURE SCR PRESUMP PATHOGENS Routine 02/06/2025 12:00 PM CDT Anemia complicating , unspecified trimester (HHS/HCC) CHLAMYDIA GC RNA Nurse Collected Priority 01/31/2025 3:05 PM CDT HEPATITIS C ANTIBODY Routine 07/20/2024 3:42 PM CDT Supervision of with other poor reproductive or obstetric history, unspecified trimester ([facility]/HCC) from Last 3 Months or Most Recently Relevant to Health Maintenance Results * Labor Epidural (02/20/2025 10:55 PM CDT) Marianne TyeFaustinaSarahSTARR - 02/20/2025 10:55 PM CDT Sarah GambleSTARR 02/20/2025 10:56 PM Epidural: Procedure Start: 02/20/2025 9:35 PM Procedure Stop: 02/20/2025 9:50 PM Patient location during procedure: OB Reason for block: labor epidural Preanesthetic Checklist Completed: patient identified, site marked, consent, pre-op evaluation, timeout performed, IV checked, risks and benefits discussed and monitors and equipment checked Procedure Information: Patient position: sitting Prep: chlorhexidine Patient monitoring: continuous pulse oximetry, non-invasive blood pressure and heart rate Approach: midline Location: L3-L4 Injection technique: DANNY saline Placement Location: lumbar Ultrasound-guided Placement: No Needle and Catheter: MRI Compatible: MRI UNSAFE Needle type: Tuohy Needle gauge: 17 G Needle length: 3.5 in Needle insertion depth: 5 cm Catheter type: side hole Catheter size: 19 G Catheter at skin depth: 11 cm Test dose: lidocaine 1.5% with epinephrine 1-to-200,000 and negative Needle attempts: 1 Assessment Sensory level: T10 Medications: Medications: lidocaine (PF) (XYLOCAINE) 1 % injection (FROM KIT - NO CHARGE) - Intradermal 30 mg - 02/20/2025 9:38:00 PM lidocaine 1.5 %-EPINEPHrine 1:200,000 injection (FROM KIT - NO CHARGE) - Epidural 3 mL - 02/20/2025 9:45:00 PM 2 mL - 02/20/2025 9:51:00 PM Sarah Gamble OUTBOUND SALES CONSULTANT GA ANESTHESIA Final Result * SYPHILIS IGG/IGM AB (02/20/2025 4:45 PM CDT) Pathologist [facility] SYPHILIS IGG IGM AB NON-REACTI VE NON-REACTI VE 02/20/2025 6:08 PM CDT [facility] Comment: No serologic evidence of syphilis. No follow-up necessary unless clinically indicated. 02/20/2025 4:45 PM CDT Alina Casanova MD LABORATORY Final Result [facility] [address] [place] [address], [id number] * BILE ACIDS (02/20/2025 4:45 PM CDT) Pathologist [facility] Cholic Acid <0.5 < OR = 2.8 umol/L 02/26/2025 5:02 PM CDT [facility] Deoxycholic Acid <0.5 < OR = 2.3 umol/L 02/26/2025 5:02 PM CDT [facility] Chenodeoxycholic Acid <0.5 < OR = 3.9 umol/L 02/26/2025 5:02 PM CDT [facility] Total Bile Acids <1.5 < OR = 8.3 umol/L 02/26/2025 5:02 PM CDT [facility] Comment: This test was developed and its analytical performance characteristics have been determined by [employer] [facility] [employer]. It has not been cleared or approved by the FDA. This assay has been validated pursuant to the CLIA regulations and is used for clinical purposes. Test performed by [id number] [place] [address] Auto Glass Technician: Petra Rodriguez MD,PHD,DOUG Test Reported by [email or web address], [employer] [place], [address] [place], [place] Benjamin Griffith M.D., Ph.D., Director of Laboratories , [facility] [id number] 02/20/2025 4:45 PM CDT us Alina Casanova MD LABORATORY Final Result Performing Organization Address [facility]/ZIP Co de Phone Number [facility] [address] , [place] [phone] * TYPE & SCREEN (02/20/2025 4:45 PM CDT) ABO/RH O POSITIVE 02/20/2025 5:53 PM CDT [facility] ANTIBODY SCREEN NEGATIVE 02/20/2025 5:53 PM CDT [facility] SAMPLE EXPIRATION 02/23/2025,2 359 02/20/2025 5:14 PM CDT [facility] 02/20/2025 4:45 PM CDT us Alina Casanova MD BLOOD BANK TEST ORDERABLES Fin al Result Performing Organization Address [facility] Co de Phone Number [facility] [address] [place] [id number], [place] [phone] * (ABNORMAL) COMPREHENSIVE METABOLIC PANEL (02/20/2025 4:45 PM CDT) SODIUM S/P/B 137 136 - 145 MMOL/L 02/20/2025 5:35 PM CDT [facility] POTASSIUM S/P/B 3.3(L) 3.5 - 5.1 MMOL/L 02/20/2025 5:35 PM CDT [facility] CHLORIDE S/P/B 110 97 - 115 MMOL/L 02/20/2025 5:35 PM CDT [facility] CO2 19.9(L) 21.0 - 32.0 MMOL/L 02/20/2025 5:35 PM CDT [facility] GLUCOSE 79 74 - 106 MG/DL 02/20/2025 5:35 PM T [facility] BUN 2(L) 7 - 18 MG/DL 02/20/2025 5:35 PM T [facility] CREATININE S/P/B 0.44(L) 0.55 - 1.02 MG/DL 02/20/2025 5:35 PM CDT [facility] CALCIUM S/P/B 8.7 8.5 - 10.1 MG/DL 02/20/2025 5:35 PM CDT [facility] BILIRUBIN TOTAL S/P/B 0.5 0.2 - 1.0 MG/DL 02/20/2025 5:35 PM T [facility] ALKALINE PHOSPHATASE S/P/B 210(H) 52 - 144 U/L 02/20/2025 5:35 PM CDT [facility] AST 12(L) 15 - 37 U/L 02/20/2025 5:35 PM CDT [facility] ALT 10(L) 13 - 56 U/L 02/20/2025 5:35 PM CDT [facility] TOTAL PROTEIN S/P/B 6.4 6.4 - 8.2 G/DL 02/20/2025 5:35 PM CDT [facility] ALBUMIN S/P/B 2.9(L) 3.4 - 5.0 G/DL 02/20/2025 5:35 PM CDT [facility] ANION GAP 7.1 2.0 - 10.0 MMOL/L 02/20/2025 5:35 PM CDT [facility] OSMOLALITY (CALC) 279 MOSM/KG 5:35 PM T [facility] Comment:REFERENCE RANGE NOT ESTABLISHED GFR ESTIMATE >90 >90 ML/MIN/1. 73 M2 02/20/2025 5:35 PM CDT [facility] GFR NOTES GFR REFERENCE S: 02/20/2025 5:35 PM CDT [facility] Comment: THE ESTIMATED GFR IS CALCULATED USING THE 2020 CKD-EPI EQUATION. THE FOLLOWING CATEGORIES FOR GRADING RENAL FUNCTION ARE RECOMMENDED BY THE INTERNATIONAL SOCIETY OF NEPHROLOGY (KDIGO 2012 CLINICAL PRACTICE GUIDELINE). G1,NORMAL OR HIGH: >89 ml/min/1.73 m2 G2,MILDLY DECREASED: 60-89 ml/min/1.73 m2 G3A,MILDLY TO MODERATELY DECREASED: 45-59 ml/min/1.73 m2 G3B,MODERATELY TO SEVERELY DECREASED: 30-44 ml/min/1.73 m2 G4,SEVERELY DECREASED: 15-29 ml/min/1.73 m2 G5,KIDNEY FAILURE: <15 ml/min/1.73 m2 02/20/2025 4:45 PM CDT Alina Casanova MD LABORATORY Final Result [facility] [address] [place] [address], [id number] * (ABNORMAL) CBC W/DIFF AUTOMATED (02/20/2025 4:45 PM CDT) WBC 10.00 4.00 - 10.80 x10'3/uL 02/20/2025 5:05 PM CDT [facility] RBC 4.15 4.10 - 5.40 x10'6/uL 02/20/2025 5:05 PM CDT [facility] HGB 10.4(L) 12.0 - 16.0 G/DL 02/20/2025 5:05 PM CDT [facility] HCT 32.0(L) 36.0 - 47.0 % 02/20/2025 5:05 PM CDT [facility] MCV 77.1(L) 78.0 - 100.0 FL 02/20/2025 5:05 PM CDT [facility] MCH 25.1(L) 27.0 - 31.0 PG 02/20/2025 5:05 PM CDT [facility] MCHC 32.5(L) 33.0 - 36.0 G/DL 02/20/2025 5:05 PM CDT [facility] RDW 14.4 11.5 - 14.5 % 02/20/2025 5:05 PM CDT [facility] PLT 191 150 - 350 x10'3/uL 02/20/2025 5:05 PM CDT [facility] MPV 11.7(H) 7.4 - 10.4 FL 02/20/2025 5:05 PM CDT [facility] DIFFERENTIAL TYPE AUTOMATED DIFFERENTIAL 02/20/2025 5:05 PM CDT [facility] SEG NEUTROPHILS 72.6 % 5:05 PM CDT [facility] LYMPHOCYTES 18.3 % 02/20/2025 5:05 PM CDT [facility] MONOCYTES 6.6 % 02/20/2025 5:05 PM CDT [facility] EOSINOPHILS 1.4 % 02/20/2025 5:05 PM CDT [facility] BASOPHILS 0.5 % 02/20/2025 5:05 PM CDT [facility] IMMATURE GRANS % 0.6 % 02/21/20 25 5:05 PM CDT [facility] ABS. NEUTROPHILS 7.26 1.60 - 8.30 x10'3/uL 02/20/2025 5:05 PM CDT [facility] ABS. LYMPHOCYTES 1.83 0.80 - 4.70 x10'3/uL 02/20/2025 5:05 PM CDT [facility] ABS. MONOCYTES 0.66 0.00 - 1.50 x10'3/uL 02/20/2025 5:05 PM CDT [facility] ABS. EOSINOPHILS 0.14 0.00 - 0.40 x10'3/uL 02/20/2025 5:05 PM CDT [facility] ABS. BASOPHILS 0.05 0.00 - 0.20 x10'3/uL 02/20/2025 5:05 PM CDT [facility] ABS. IMMATURE GRANULOCYTES 0.06(H) 0.00 - 0.03 x10'3/uL 02/20/2025 5:05 PM CDT [facility] ABS. NUCLEATED RBC'S 0.00 0.00 - 0.01 x10'3/uL 02/20/2025 5:05 PM CDT [facility] NRBC % 0.0 % 02/20/2025 5:05 PM CDT [facility] 02/20/2025 4:45 PM CDT Alina Casanova MD LABORATORY Final Result Performing Organization Address City/[facility] Co de Phone Number [facility] [address] [place] [address], [id number] * GROUP B STREP MOLECULAR (02/06/2025 12:00 PM CDT) SOURCE ANOVAGINAL 02/06/2025 3:54 PM CDT [facility] GROUP B STREP DNA Beta Strep Group B not detected. Beta Strep Group B not detected. 02/07/2025 2:31 PM CDT [facility] 02/06/2025 12:0 0 PM CDT Delfino Babcock MD MICROBIOLOGY - GENERAL ORDERABL ES Final Result Performing Organization Address [facility] Co de Phone Number [facility] [address] [place] [id number], [id number] * CHLAMYDIA GC RNA (01/31/2025 3:05 PM CDT) SPECIMEN CERVIX 01/31/2025 3:18 PM CDT [facility] CHLAMYDIA RNA TMA NEGATIVE NEGATIVE 025 3:31 PM CDT [facility] Comment:PERFORMED BY NUCLEIC ACID AMPLIFICATION N.GONORRHOEAE RNA TMA NEGATIVE NEGATIVE 02/01/2025 3:31 PM CDT [facility] Comment:PERFORMED BY NUCLEIC ACID AMPLIFICATION CERVIX UTERI STRUCTURE / Unknown 01/31/2025 3:05 PM CDT us Devi Herman MD MICROBIOLOGY - GENERAL OR DERABLES Final Result [facility] [address] [place] [address], [place] [phone] [facility] [address] [place] [address], [place] [phone] * HEPATITIS C ANTIBODY (07/20/2024 3:42 PM CDT) HEPATITIS C AB NON-REACTI VE NON-REACT IGOR 07/20/2024 6:32 PM CDT [facility] Comment: ANTIBODIES TO HCV NOT DETECTED. DOES NOT EXCLUDE THE POSSIBILITY OF EXPOSURE TO HCV. 07/20/2024 3:42 PM CDT us Cee [facility] Final Result Performing Organization Address City/[facility]/ZIP Co de Phone Number [facility] [address] [place] [address], [place] [phone] from Last 3 Months or Most Recently Relevant to Health Maintenance Insurance [employer] Advance Directives * Full Code (Latest Code Status on File) Date Activated Date Inactivated Comments 02/20/2025 4:12 PM 02/22/2025 5:13 PM * Full Code Date Activated Date Inactivated Comments 02/20/2025 4:12 PM 02/20/2025 4:12 PM * Full Code Date Activated Date Inactivated Comments 02/02/2024 10:54 PM 02/04/2024 11:52 AM * Full Code Date Activated Date Inactivated Comments 07/09/2022 7:35 AM 07/09/2022 11:38 PM * Full Code Date Activated Date Inactivated Comments 06/08/2022 9:12 AM 06/08/2022 12:[address]ader Relationship Specialty Start Date End Date Pankaj Ac NP [address] [place] [address] [phone] PCP - General Nurse Practitioner Family 07/20/24
== END 2025-05-07 10:49 | disposition home or self-care (01) ==
PROVIDERS: PCP Registered Nurse; Visit Provider Registered Nurse
DX: R05.9 Cough, unspecified (principal)
CPT/HCPCS: 0202U